=== PATIENT | female | born 1985 | race Caucasian/White ===

== ENCOUNTER 2016-12-08 21:47 | Emergency (ER) | payer MEDICARE | END 2016-12-08 22:41 | disposition home or self-care (01) | LOC: ER 21:47 | DX: M72.2 Plantar fascial fibromatosis (principal); M79.671 Pain in right foot; R00.2 Palpitations | CPT/HCPCS: 73630; 99070; 99283 ==

== ENCOUNTER 2016-12-22 22:49 | Emergency (ER) | payer MEDICARE ==
[2016-12-22 23:20] LABS: URINE BILIRUBIN NEGATIVE (NEGATIVE); URINE BLOOD 3+ (NEGATIVE); URINE GLUCOSE (UA) NORMAL (NORMAL); URINE KETONE NEGATIVE (NEGATIVE); URINE LEUKOCYTE ESTERASE TRACE (NEGATIVE); URINE NITRATE NEGATIVE (NEGATIVE); URINE PROTEIN 3+ (NEGATIVE); UROBILINOGEN NORMAL mg/dL (<1.0)
[2016-12-22 23:27] LABS: BASO % 0.2 % (0.1-1.2); EOS # 0.2 10_X3_uL (0.0-0.4); EOS % 0.6 % (0.7-5.8); GRAN # 21.4 10_X3_uL (1.6-6.1); GRAN % 86.1 % (34.0-71.1); HEMATOCRIT 40.7 % (34-45); HEMOGLOBIN 13.2 g/dL (11.2-15.7); LYMPH # 2.5 10_X3_uL (1.2-3.7); LYMPH % 10.2 % (19.3-51.7); MEAN CORPUSCULAR HEMOGLOBIN 27.4 pg (27.0-33.0); MEAN CORPUSCULAR HGB CONC 32.4 g/dL (32.0-36.0); MEAN CORPUSCULAR VOLUME 84.6 fL (79-95); MEAN PLATELET VOLUME 11.7 fl (7.5-11.5); MONO # 0.7 10_X3_uL (0.2-0.9); MONO % 2.9 % (4.7-12.5); PLATELET COUNT 382 x10_3/uL (182-369); RED BLOOD COUNT 4.81 x10_6/uL (3.9-5.2); RED CELL DISTRIBUTION WIDTH 14.7 % (11.7-14.4)
[2016-12-22 23:47] LABS: ALBUMIN 4.2 gm/dL (3.4-5.0); ALKALINE PHOSPHATASE 83 U/L (50-136); ALT/SGPT 9 U/L (3.5-33.9); AMYLASE 86 U/L (15.62-74.58); AST/SGOT 12 U/L (7.04-26.96); BLOOD UREA NITROGEN 15 mg/dL (7-18); CARBON DIOXIDE 24 mmol/L (21-32); CREATININE 0.6 mg/dL (0.6-1.3); GLUCOSE,RANDOM 121 mg/dL (70-99); LIPASE 38 U/L (6.75-60.75); POTASSIUM 4.1 mmol/L (3.5-5.1); SODIUM 142 mmol/L (136-145); TOTAL PROTEIN 7.1 gm/dL (6.4-8.2)
[2016-12-22 23:51] LABS: BILIRUBIN,TOTAL < 0.15 mg/dL (0.0-1.0)
[2016-12-22 23:56] LABS: URINE BACTERIA 2+ (NONE SEEN)
[2016-12-23 00:04] LABS: WHITE BLOOD COUNT 24.8 x10_3/uL (4.0-10.0)
== END 2016-12-23 02:52 | disposition home or self-care (01) ==
LOC: ER 22:49
PROVIDERS: General Practice
DX: N39.0 Urinary tract infection, site not specified (principal); K52.9 Noninfective gastroenteritis and colitis, unspecified; R11.2 Nausea with vomiting, unspecified; R19.7 Diarrhea, unspecified; R10.12 Left upper quadrant pain; E66.01 Morbid (severe) obesity due to excess calories; F17.210 Nicotine dependence, cigarettes, uncomplicated
CPT/HCPCS: 36415; 80053; 81001; 82150; 83690; 85025; 96361; 96374; 96375; 99070; 99284-25; J7040; Q9967